=== PATIENT | female | born 1990 | race African-American/Black ===

== ENCOUNTER 2019-02-08 15:41 | Emergency (ER) | payer OTHER ==
[~2019-02-08] VITALS: Ht 162.6 cm; Wt 95.5 kg
[2019-02-08] MEDS ORDERED: CYAN250014 PO (15:45)
[2019-02-08] MEDS ORDERED: ASPI81 PO (15:45)
[2019-02-08] MEDS ORDERED: CEPHALEXIN MONOHYDRATE 500 MG CAPSULE PO ONE (16:45)
[2019-02-08] MEDS ORDERED: KETOROLAC TROMETHAMINE 30 MG/ML VIAL IM ONE (16:45)
[2019-02-08] MEDS ORDERED: ALBUTEROL SULFATE HFA 90 MCG/PUFF 8 GM INHALER IH ONE (16:45)
[2019-02-08 17:22] VITALS: BP 124/71
== END 2019-02-08 17:30 | disposition home or self-care (01) ==
LOC: EMS 15:41
DX: M79.89 Other specified soft tissue disorders (principal); F17.210 Nicotine dependence, cigarettes, uncomplicated; J45.909 Unspecified asthma, uncomplicated; Z79.82 Long term (current) use of aspirin
CPT/HCPCS: 29130; 94640; 96372; 99283; 99406; J1885; J3535

== ENCOUNTER 2019-02-12 03:59 | Emergency (ER) | payer OTHER ==
[~2019-02-12] VITALS: Ht 162.6 cm; Wt 95.5 kg
[~2019-02-12 03:59] MED LIST: ASPI81 PO; CYAN250014 PO
[2019-02-12 04:24] VITALS: BP 125/75
== END 2019-02-12 05:47 | disposition left against medical advice (07) ==
LOC: EMS 04:03
DX: M79.89 Other specified soft tissue disorders (principal); F17.210 Nicotine dependence, cigarettes, uncomplicated; Z53.21 Procedure and treatment not carried out due to patient leaving prior to being seen by health care provider

== ENCOUNTER 2019-02-12 08:48 | Emergency (ER) | payer OTHER ==
[~2019-02-12] VITALS: Ht 162.6 cm; Wt 97.7 kg
[2019-02-12] MEDS ORDERED: LIDOCAINE 1% 10 ML VIAL INJ ONE (10:45)
[2019-02-12] MEDS ORDERED: MORPHINE SULFATE 4 MG/ML SYRINGE IVP ONE (10:45)
[2019-02-12] MEDS ORDERED: ONDANSETRON HCL 4 MG/2 ML VIAL IVP ONE (10:45)
[2019-02-12] MEDS ORDERED: CeFAZolin 1 GM/DEXTROSE 50 ML IV ONE (10:45)
[2019-02-12 11:56] LABS: BASOPHILS % (AUTO) 0.9 % (0.0-2.0); HEMATOCRIT 36.3 % (36-46); HEMOGLOBIN 11.9 g/dL (12.0-16.0); LYMPHOCYTES # (AUTO) 3.2 K/uL (1.0-4.8); LYMPHOCYTES % (AUTO) 45.4 % (22.0-44.0); MEAN CORPUSCULAR HEMOGLOBIN 30.7 pg (26.0-34.0); MEAN CORPUSCULAR HGB CONC 32.7 G/dL (31.0-37.0); MEAN CORPUSCULAR VOLUME 94 fL (80-100); MONOCYTES # (AUTO) 0.8 K/uL (0.1-1.0); MONOCYTES % (AUTO) 11.5 % (2.0-9.0); NEUTROPHILS # (AUTO) 2.8 K/uL (1.8-7.7); NEUTROPHILS % (AUTO) 40.2 % (40.0-70.0); PLATELET COUNT (AUTO) 384 K/uL (150-450); RED BLOOD CELL COUNT(AUTO) 3.86 MIL/uL (4.00-5.20); RED CELL DISTRIBUTION WIDTH 14.3 % (11.5-14.5)
[2019-02-12 13:56] VITALS: BP 130/77
== END 2019-02-12 14:01 | disposition home or self-care (01) ==
LOC: EMS 08:49
DX: L03.012 Cellulitis of left finger (principal); F17.210 Nicotine dependence, cigarettes, uncomplicated; Z79.82 Long term (current) use of aspirin
CPT/HCPCS: 10060; 36415; 85025; 96365; 96375; 99283; J0690; J2270; J2405; J3490

== ENCOUNTER 2024-04-12 02:16 | Emergency (ER) | payer MEDICAID, OTHER ==
[~2024-04-12] VITALS: Ht 162.6 cm; Wt 81.8 kg
[~2024-04-12 02:16] MED LIST changes: +ASPI-1450 PO; -ASPI81 PO
[2024-04-12 02:32] VITALS: TEMP 98
[2024-04-12] MEDS: KETOROLAC TROMETHAMINE 60 MG/2 ML VIAL IM ONE (03:17)
[2024-04-12] MEDS: HYDROCODONE/ACETAMINOPHEN 5-325 MG TABLET PO ONE (04:42)
[2024-04-12 06:44] VITALS: BP 103/58; PULSE 68; RESP 17
== END 2024-04-12 09:02 | disposition left against medical advice (07) ==
LOC: EMS 02:17
DX: S09.93XA Unspecified injury of face, initial encounter (principal); F17.210 Nicotine dependence, cigarettes, uncomplicated; Y04.0XXA Assault by unarmed brawl or fight, initial encounter; Y93.89 Activity, other specified; Y92.89 Other specified places as the place of occurrence of the external cause; Y99.8 Other external cause status
CPT/HCPCS: 99285; 70450; 84703; 70486; 96372; J1885

== ENCOUNTER 2024-09-17 17:51 | Inpatient (IN) | payer MEDICAID ==
[~2024-09-17] VITALS: Ht 160 cm; Wt 71.3 kg
[2024-09-17 19:59] LABS: EOSINOPHILS % (AUTO) 0 % (1.0-6.0)
[2024-09-17 20:03] LABS: BASOPHILS % (AUTO) 0.8 % (0.0-2.0); HEMATOCRIT 30.9 % (36-46); HEMOGLOBIN 9.8 g/dL (12.0-16.0); LYMPHOCYTES # (AUTO) 1.3 K/uL (1.0-4.8); LYMPHOCYTES % (AUTO) 7.9 % (22.0-44.0); MEAN CORPUSCULAR HEMOGLOBIN 24.7 pg (26.0-34.0); MEAN CORPUSCULAR HGB CONC 31.6 G/dL (31.0-37.0); MEAN CORPUSCULAR VOLUME 78 fL (80-100); MONOCYTES # (AUTO) 1.4 K/uL (0.1-1.0); MONOCYTES % (AUTO) 8.4 % (2.0-9.0); NEUTROPHILS # (AUTO) 13.7 K/uL (1.8-7.7); NEUTROPHILS % (AUTO) 82.9 % (40.0-70.0); PLATELET COUNT (AUTO) 318 K/uL (150-450); RED BLOOD CELL COUNT(AUTO) 3.96 MIL/uL (4.00-5.20); RED CELL DISTRIBUTION WIDTH 22.5 % (11.5-14.5); WHITE BLOOD COUNT (AUTO) 16.5 K/uL (4.5-11.0)
[2024-09-17] MEDS: LORazepam 2 MG/ML VIAL IM ONE (20:06)
[2024-09-17] MEDS: DiphenhydrAMINE HCL 50 MG/ML VIAL IM ONE (20:06)
[2024-09-17] MEDS: HALOPERIDOL LACTATE 5 MG/ML VIAL IM ONE (20:07)
[2024-09-17 20:16] LABS: ALCOHOL, BLOOD (SERUM) < 3 mg/dL (0-10)
[2024-09-17 20:22] LABS: ANION GAP 14 mmol/L (8-16); CALCIUM, TOTAL 8.8 mg/dL (8.8-10.5); CARBON DIOXIDE 26 mmol/L (22-29); CHLORIDE 94 mmol/L (98-107); CREATININE 0.91 mg/dL (0.60-1.30); GLOMERULAR FILTR. RATE CALC > 60 mL/min (>60); GLUCOSE,RANDOM 94 mg/dL (70-110); POTASSIUM 3.1 mmol/L (3.5-5.1); SODIUM SERUM 133 mmol/L (136-145); UREA NITROGEN, BLOOD 8 mg/dL (7-18)
[2024-09-17 20:44] LABS: COVID AG,FIA SOURCE NASAL SWAB
[2024-09-17 21:07] LABS: SARS-COV2 (COVID) ANTIGEN,FIA Negative (Negative)
[2024-09-18] MEDS: POTASSIUM CHLORIDE 20 MEQ ER TABLET PO ONE (03:20)
[2024-09-18 04:00] VITALS: O2SAT 100
[2024-09-18] MEDS ORDERED: INFLUENZA VIRUS VACCINE TVS (6MO+) 2024-25/PF 45 MCG/0.5 ML SYRINGE IM. ONE (05:45)
[2024-09-18 05:52] VITALS: BP 94/60; PULSE 78; RESP 18; TEMP 97
[2024-09-18 08:16] VITALS: BP 103/64; PULSE 70; RESP 17; TEMP 96.7; O2SAT 98
[2024-09-18] MEDS ORDERED: HALOPERIDOL 5 MG TABLET PO PRN (08:30)
[2024-09-18] MEDS ORDERED: GuaiFENesin/D-METHORPHAN [SUGAR-FREE] 200-20MG/10 ML SYRUP UDCUP PO PRN (09:15)
[2024-09-18] MEDS ORDERED: CloNIDine HCL 0.1 MG TABLET PO PRN (09:15)
[2024-09-18] MEDS ORDERED: NICOTINE 14 MG/24 HOUR PATCH TD PRN (09:15)
[2024-09-18] MEDS ORDERED: ONDANSETRON 4 MG TABLET PO PRN (09:15)
[2024-09-18] MEDS ORDERED: ACETAMINOPHEN 325 MG TABLET PO PRN (09:15)
[2024-09-18] MEDS ORDERED: MAG HYDROX/ALUMINUM HYD/SIMETH ES 30 ML SUSPENSION UDCUP PO PRN (09:15)
[2024-09-18] MEDS ORDERED: LOPERAMIDE HCL 2 MG CAPSULE PO PRN (09:15)
[2024-09-18] MEDS ORDERED: DOCUSATE SODIUM 100 MG CAPSULE PO PRN (09:15)
[2024-09-18] MEDS ORDERED: PETROLATUM,WHITE 28 GM JELLY TP PRN (09:15)
[2024-09-18] MEDS ORDERED: IBUPROFEN 400 MG TABLET PO PRN (09:15)
[2024-09-18] MEDS ORDERED: MAGNESIUM HYDROXIDE SUSPENSION 30 ML UDCUP PO PRN (09:15)
[2024-09-18] MEDS ORDERED: ALBUTEROL SULFATE HFA 90 MCG/PUFF 8 GM INHALER IH PRN (09:15)
[2024-09-18] MEDS: LORazepam 2 MG TABLET PO PRN (15:55)
[2024-09-18 20:12] VITALS: BP 124/84; PULSE 100; RESP 18; TEMP 98; O2SAT 99
[2024-09-18] MEDS: RisperiDONE 1 MG TABLET PO SCH (20:12)
[2024-09-19 08:25] VITALS: BP 130/86; PULSE 89; RESP 18; TEMP 97.7; O2SAT 95
[2024-09-19 09:55] LABS: HEMATOCRIT 32.8 % (36-46); HEMOGLOBIN 10.7 g/dL (12.0-16.0); MEAN CORPUSCULAR HEMOGLOBIN 25.9 pg (26.0-34.0); MEAN CORPUSCULAR HGB CONC 32.7 G/dL (31.0-37.0); MEAN CORPUSCULAR VOLUME 79 fL (80-100); PLATELET COUNT (AUTO) 342 K/uL (150-450); RED BLOOD CELL COUNT(AUTO) 4.14 MIL/uL (4.00-5.20); RED CELL DISTRIBUTION WIDTH 22.6 % (11.5-14.5); WHITE BLOOD COUNT (AUTO) 5.8 K/uL (4.5-11.0)
[2024-09-19 12:34] LABS: BAND NEUTROPHILS % (MANUAL) 0 % (0-5)
[2024-09-19 13:04] LABS: ANION GAP 11 mmol/L (8-16); CARBON DIOXIDE 27 mmol/L (22-29); CHLORIDE 100 mmol/L (98-107); GLUCOSE,RANDOM 102 mg/dL (70-110); POTASSIUM 3.4 mmol/L (3.5-5.1); SODIUM SERUM 138 mmol/L (136-145)
[2024-09-19 13:05] LABS: CALCIUM, TOTAL 9.1 mg/dL (8.8-10.5); CHOL/HDL RATIO 3.1 (3.9-5.7); CHOLESTEROL 188 mg/dL (131-200); CREATININE 0.81 mg/dL (0.60-1.30); GLOMERULAR FILTR. RATE CALC > 60 mL/min (>60); HDL CHOLESTEROL 61 mg/dL (40-60); LDL CHOL (CALC.) 105 mg/dL (0-130); THYROID STIMULATING HORMONE 0.62 uIU/mL (0.36-3.74); TRIGLYCERIDES 109 mg/dL (15-150); UREA NITROGEN, BLOOD 8 mg/dL (7-18)
[2024-09-19 13:11] LABS: LYMPHOCYTES % (MANUAL) 41 % (22-44); MONOCYTES % (MANUAL) 9 % (2-9); SEGMENTED NEUTROPHILS % 50 % (40-70); TOTAL CELLS COUNTED 100
[2024-09-19 13:12] LABS: RBC MORPHOLOGY COMMENT ABNORMAL R
[2024-09-19 13:57] LABS: HEMOGLOBIN A1C 5.6 % (3.8-5.6)
[2024-09-19 20:11] VITALS: BP 122/85; PULSE 78; RESP 20; TEMP 97.6; O2SAT 96
[2024-09-19] MEDS: ZOLPIDEM TARTRATE 10 MG TABLET PO PRN (20:36)
[2024-09-20 08:07] VITALS: BP 115/83; PULSE 77; RESP 16; TEMP 96.9; O2SAT 96
[2024-09-20 08:32] LABS: APPEARANCE,URINE TURBID (CLEAR); BILIRUBIN,URINE NEGATIVE (NEGATIVE); COLOR,URINE ORANGE (YELLOW); GLUCOSE, URINE (UA) NEGATIVE (NEGATIVE); LEUKOCYTE ESTERASE ,URINE LARGE (NEGATIVE); NITRATE,URINE POSITIVE (NEGATIVE); OCCULT BLOOD,URINE NEGATIVE (NEGATIVE); PROTEIN,URINE 30-70 mg/dL (NEGATIVE); SPECIFIC GRAVITIY, URINE 1.026 (1.003-1.030)
[2024-09-20 08:38] LABS: ALCOHOL, URINE DRUG SCREEN NEGATIVE (NEGATIVE); AMPHET/METH SCREEN,URINE POSITIVE (NEGATIVE); BARBITURATE SCREEN, URINE NEGATIVE (NEGATIVE); BENZODIAZEPINES SCREEN,URINE NEGATIVE (NEGATIVE); CANNABINOID SCREEN,URINE POSITIVE (NEGATIVE); COCAINE SCREEN,URINE NEGATIVE (NEGATIVE); METHADONE SCREEN, URINE NEGATIVE (NEGATIVE); OPIATE SCREEN,URINE NEGATIVE (NEGATIVE); PHENCYCLIDINE SCREEN,URINE NEGATIVE (NEGATIVE)
[2024-09-20 08:57] LABS: AMORPHOUS SEDIMENT,UR Many /LPF (None Seen); BACTERIA,URINE Many /HPF (None Seen); RBC,URINE 0-2 /HPF (0-2); SQUAMOUS EPITHELIAL CELL,UR Few /LPF (None Seen); WBC,URINE 0-2 /HPF (0-5)
[2024-09-20] MEDS ORDERED: RISP-31 PO (09:58)
== END 2024-09-20 19:23 | disposition home or self-care (01) | DRG 750 ==
LOC: EMS 17:51 → B2S 09-18 04:57 → EMS 09-18 05:01
PROVIDERS: ADMIT Psychiatry & Neurology Child & Adolescent Psychiatry; ATTEND Psychiatry & Neurology Child & Adolescent Psychiatry
PROC: GZ52ZZZ Individual Psychotherapy, Cognitive (ICD-10-PCS; principal; 2024-09-19)
PROC: GZ56ZZZ Individual Psychotherapy, Supportive (ICD-10-PCS; 2024-09-19)
DX: F25.1 Schizoaffective disorder, depressive type (principal); D64.9 Anemia, unspecified; D72.829 Elevated white blood cell count, unspecified; E87.6 Hypokalemia; F12.10 Cannabis abuse, uncomplicated; F15.10 Other stimulant abuse, uncomplicated; F41.9 Anxiety disorder, unspecified; Z20.822 Contact with and (suspected) exposure to COVID-19; G47.00 Insomnia, unspecified; I10 Essential (primary) hypertension; Z79.899 Other long term (current) drug therapy; Z87.891 Personal history of nicotine dependence; Z91.018 Allergy to other foods
CPT/HCPCS: 80048; 80061; 80307; 81001; 83036; 84443; 85025; 87077; 87086; 87186; G0480